=== PATIENT | male | born 1945 ===

== ENCOUNTER 2020-09-13 06:00 | Day surgery (SDC) | payer OTHER ==
[~2020-09-13 06:00] MED LIST: LEVOTHY PO; SIMVASTAT PO; [UNRECOGNIZED DRUG - OTHER] PO
== END 2020-09-13 17:53 | disposition home or self-care (01) ==
LOC: CIR.AMB 06:00
PROVIDERS: ATTEND Orthopaedic Surgery Hand Surgery
DX: M72.0 Palmar fascial fibromatosis [Dupuytren] (principal); Z20.822 Contact with and (suspected) exposure to COVID-19